=== PATIENT | male | born 2000 | race Caucasian/White ===

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

== ENCOUNTER 2020-01-07 22:15 | Emergency (ER) | payer BC, SELFPAY ==
[~2020-01-07] VITALS: Ht 170.2 cm; Wt 54.5 kg
[2020-01-07] MEDS ORDERED: OLANZapine INTRAMUSCULAR 10MG VIAL IM ONE (23:00)
[2020-01-07 23:05] LABS: HEMATOCRIT 48.3 % (42.0-52.0); HEMOGLOBIN 16.8 g/dl (13.5-17.5); MEAN CORPUSCULAR HEMOGLOBIN 32.8 pg (27.0-33.0); MEAN CORPUSCULAR HGB CONC 34.8 g/dl (32.0-36.5); MEAN CORPUSCULAR VOLUME 94.3 fl (80.0-96.0); PLATELET COUNT, AUTOMATED 274 10^3/uL (150-450); RED BLOOD COUNT 5.12 10^6/uL (4.30-6.10); WHITE BLOOD COUNT 6.5 10^3/uL (4.0-10.0)
[2020-01-07 23:35] LABS: AMPHETAMINES LEVEL URINE NEGATIVE (NEGATIVE); BARBITURATES URINE NEGATIVE (NEGATIVE); BENZODIAZEPINES URINE NEGATIVE (NEGATIVE); CANNABINOIDS URINE NEGATIVE (NEGATIVE); COCAINE METABOLITE URINE NEGATIVE (NEGATIVE); METHADONE URINE NEGATIVE (NEGATIVE); OPIATES URINE NEGATIVE (NEGATIVE); PHENCYCLIDINE URINE NEGATIVE (NEGATIVE)
[2020-01-07 23:46] LABS: ACETAMINOPHEN LEVEL < 2.0 UG/ML (10.0-30.0); ALBUMIN 4.4 GM/DL (3.2-5.2); ALT/SGPT 19 U/L (12-78); BILIRUBIN,DIRECT 0.1 MG/DL (0.0-0.2); BILIRUBIN,TOTAL 0.4 MG/DL (0.2-1.0); BLOOD UREA NITROGEN 8 MG/DL (7-18); CALCIUM LEVEL 8.9 MG/DL (8.5-10.1); CARBON DIOXIDE LEVEL 28 MEQ/L (21-32); CHLORIDE LEVEL 108 MEQ/L (98-107); CREATININE FOR GFR 0.96 MG/DL (0.70-1.30); ETHYL ALCOHOL (ETHANOL) 0.208 % (0.000-0.010); GLUCOSE, FASTING 86 MG/DL (70-100); POTASSIUM SERUM 3.9 MEQ/L (3.5-5.1); SALICYLATE LEVEL 1.7 MG/DL (5.0-30.0); SODIUM LEVEL 141 MEQ/L (136-145); THYROID STIMULATING HORMONE 0.958 uIU/ML (0.463-3.98); TOTAL PROTEIN 7.8 GM/DL (6.4-8.2)
[2020-01-08 09:26] VITALS: BP 125/72
== END 2020-01-08 10:26 | disposition home or self-care (01) ==
LOC: M ED 22:15
DX: F10.129 Alcohol abuse with intoxication, unspecified (principal); F17.200 Nicotine dependence, unspecified, uncomplicated
CPT/HCPCS: 36415; 80048; 80076; 80307; 84443; 85027; 96372; 99285; G0480

== ENCOUNTER 2020-04-13 03:52 | Inpatient (IN) | payer BC, MEDICAID ==
[~2020-04-13] VITALS: Ht 170.2 cm; Wt 52.1 kg
[2020-04-13] MEDS ORDERED: diphenhydrAMINE 50MG/ML VIAL (J1200) As Ordered ONE (03:55)
[2020-04-13] MEDS ORDERED: HALOPERIDOL 5MG/ML VIAL (J1630 PER 1) As Ordered ONE (03:55)
[2020-04-13] MEDS ORDERED: LORazepam 2 MG/ML VIAL As Ordered ONE (03:58)
[2020-04-13] MEDS ORDERED: HALOPERIDOL 5MG/ML VIAL (J1630 PER 1) IM ONE (04:00)
[2020-04-13] MEDS ORDERED: diphenhydrAMINE 50MG/ML VIAL (J1200) IM ONE (04:00)
[2020-04-13] MEDS ORDERED: LORazepam 2 MG/ML VIAL IM ONE (04:00)
[2020-04-13] MEDS ORDERED: LORazepam 2 MG/ML VIAL IV STA (04:15)
[2020-04-13] MEDS ORDERED: NS 1,000 ML IV ONE (04:15)
[2020-04-13 04:16] LABS: HEMATOCRIT 49.5 % (42.0-52.0); HEMOGLOBIN 16.9 g/dl (13.5-17.5); MEAN CORPUSCULAR HEMOGLOBIN 32.7 pg (27.0-33.0); MEAN CORPUSCULAR HGB CONC 34.1 g/dl (32.0-36.5); MEAN CORPUSCULAR VOLUME 95.7 fl (80.0-96.0); PLATELET COUNT, AUTOMATED 310 10^3/uL (150-450); RED BLOOD COUNT 5.17 10^6/uL (4.30-6.10); WHITE BLOOD COUNT 5.9 10^3/uL (4.0-10.0)
[2020-04-13 05:03] LABS: AMPHETAMINES LEVEL URINE NEGATIVE (NEGATIVE); BARBITURATES URINE NEGATIVE (NEGATIVE); BENZODIAZEPINES URINE NEGATIVE (NEGATIVE); CANNABINOIDS URINE POSITIVE (NEGATIVE); COCAINE METABOLITE URINE NEGATIVE (NEGATIVE); METHADONE URINE NEGATIVE (NEGATIVE); OPIATES URINE NEGATIVE (NEGATIVE); PHENCYCLIDINE URINE NEGATIVE (NEGATIVE)
[2020-04-13 05:17] LABS: ACETAMINOPHEN LEVEL < 2.0 UG/ML (10.0-30.0); ALBUMIN 4.5 GM/DL (3.2-5.2); ALT/SGPT 19 U/L (12-78); BILIRUBIN,DIRECT 0.1 MG/DL (0.0-0.2); BILIRUBIN,TOTAL 0.5 MG/DL (0.2-1.0); BLOOD UREA NITROGEN 6 MG/DL (7-18); CALCIUM LEVEL 8.5 MG/DL (8.5-10.1); CARBON DIOXIDE LEVEL 24 MEQ/L (21-32); CHLORIDE LEVEL 107 MEQ/L (98-107); CPK CREATINE PHOSPHOKINASE 146 U/L (39-308); CREATININE FOR GFR 0.93 MG/DL (0.70-1.30); ETHYL ALCOHOL (ETHANOL) 0.193 % (0.000-0.010); GLUCOSE, FASTING 106 MG/DL (70-100); POTASSIUM SERUM 3.9 MEQ/L (3.5-5.1); SALICYLATE LEVEL < 1.7 MG/DL (5.0-30.0); SODIUM LEVEL 142 MEQ/L (136-145); TOTAL PROTEIN 7.8 GM/DL (6.4-8.2)
[2020-04-13 18:52] LABS: RSV AMPLIFICATION NEGATIVE (NEGATIVE)
[2020-04-13] MEDS ORDERED: MOM 30ML SUSPENSION UDC PO PRN (19:00)
[2020-04-13] MEDS ORDERED: MAALOX 30 ML SUSP *UDC PO PRN (19:00)
[2020-04-13] MEDS ORDERED: ACETAMINOPHEN TAB 650MG DOSE (2X325MG) PO PRN (19:00)
[2020-04-13] MEDS ORDERED: cloNIDine 0.1 MG TAB PO PRN (19:00)
[2020-04-13] MEDS ORDERED: OLANZapine ORAL DISINTEGRATING TAB 5MG PO PRN (19:00)
[2020-04-14] MEDS: SERTRALINE HCL 25 MG TABLET PO SCH (09:50)
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
[2020-04-14] MEDS: DIVALPROEX 250 MG TAB PO SCH (20:29)
[2020-04-15 05:33] VITALS: BP 106/60
[2020-04-15] MEDS: SERTRALINE HCL 25 MG TABLET PO SCH (09:05)
[2020-04-15] MEDS: DIVALPROEX 250 MG TAB PO SCH ×2 (09:06→21:36)
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
[2020-04-15 17:30] VITALS: BP 110/68
[2020-04-15] MEDS: traZODone 50 MG TAB PO PRN (21:36)
[2020-04-16 06:04] VITALS: BP 138/76
[2020-04-16] MEDS: DIVALPROEX 250 MG TAB PO SCH ×2 (09:23→21:03)
[2020-04-16] MEDS: SERTRALINE HCL 25 MG TABLET PO SCH (09:23)
[2020-04-16 17:47] VITALS: BP 110/78
[2020-04-17 06:04] VITALS: BP 133/83
[2020-04-17] MEDS: SERTRALINE HCL 25 MG TABLET PO SCH (09:11)
[2020-04-17] MEDS: DIVALPROEX 250 MG TAB PO SCH ×2 (09:11→20:21)
[2020-04-17 15:33] VITALS: BP 133/80
--- NOTE | 2020-04-17 15:39 | MHIPNPDOC ---
[facility] Progress Note Progress Note DATE OF SERVICE: 04/16/2020 CHIEF COMPLAINT: "I had an argument with my mother" HISTORY: This is a 19-year-old male who was brought to the emergency room by the police. Patient was invited to his meeting, and he accepted. We met. Chart was reviewed. Patient denies auditory and visual hallucination. He denies suicidal and homicidal ideations. Patient reports that he has been on medications since he has been admitted and feels much better. He indicated to other worker that his mother would take him back and this has been verified with the coworker. OBJECTIVE: VITAL SIGNS: See below. NEW TEST RESULTS: See below. CURRENT MEDICATIONS: See below. MENTAL STATUS EXAMINATION: Patient is a 19-year old male who looks his stated age. Speech: Is clear , not pressured with normal tone and volume. Patient makes good eye contact. Motor activity: No Psychomotor agitation. No psychomotor retardation. Thought processes : Linear, logical and circumstantial, and perseverative about certain topics. Thought content:appropriate . Perceptions: Denies auditory and visual hallucinations. No persecutory delusion. Judgment: Is fair Insight: Is fair. Immediate recall, Recent and remote memory: Are grossly intact. Attention span is good and concentration: Is normal. Fund of knowledge: Normal for educational attainment. Mood: Is euthymic. Affect: Appropriate and mood congruent. Assessment and plan: Assess 19-year-old, male admitted with signs and symptoms consistent with mood disorder NOS, without psychosis. DIAGNOSES: 1. Mood disorder, not otherwise specified, in complete remission. 2. Personality disorder NOS. 3. None. TREATMENT PLAN: Continue medications as followed: Divalproex Sodium 250 mg by mouth twice daily. Olanzapine 5 mg by mouth twice daily. Trazodone 100 mg by mouth at bedtime. Increase sertraline to 50 mg by mouth daily. TIME SPENT: 30 minutes. Vital Signs Vital Signs Date Time Temp Pulse Resp B/P (MAP) Pulse Ox O2 Delivery O2 Flow Rate FiO2 04/17/20 15:33 98.6 53 14 133/80 (97) 100 04/17/20 06:04 Room Air Current Medications Current Medications Medications (Trade) Dose Ordered Sig/Erinn Route PRN Reason Start Time Stop Time Status Last Admin Dose Admin Acetaminophen (Tylenol Tab) 650 mg Q6HP PRN PO HEADACHE or DISCOMFORT 04/13/20 19:00 04/16/20 19:30 Al Hydrox/Mg Hydrox/Simethicone (Mylanta) 30 ml Q4HP PRN PO HEARTBURN/INDIGESTION 04/13/20 19:00 Clonidine HCl (Catapres) 0.1 mg TIDP PRN PO ANXIETY 04/13/20 19:00 Divalproex Sodium (Depakote) 250 mg BID PO 04/14/20 21:00 04/17/20 09:11 Home Med (Med Rec Complete!) ASDIRECTED XX 04/13/20 18:15 04/13/20 18:08 DC Lorazepam (Ativan) 2 mg STAT STAT IV 04/13/20 04:15 04/13/20 04:16 DC 04/13/20 04:20 Magnesium Hydroxide (Milk Of Magnesia) 30 ml DAILYPRN PRN PO CONSTIPATION 04/13/20 19:00 Olanzapine (ZyPREXA ZYDIS) 5 mg Q4HP PRN PO AGITATION 04/13/20 19:00 Sertraline HCl (Zoloft) 25 mg DAILY PO 04/14/20 09:00 04/17/20 09:11 Trazodone HCl (Desyrel) 50 mg QHSP PRN PO INSOMNIA 04/13/20 19:00 04/15/20 21:36 Allergies Coded Allergies: No Known Allergies (Unverified , 03/07/18) FLORIAN ROSADO MD Apr 17, 2020 15:39
[2020-04-17] MEDS: traZODone 50 MG TAB PO PRN (20:21)
[2020-04-18 06:29] VITALS: BP 123/74
[2020-04-18] MEDS: SERTRALINE HCL 25 MG TABLET PO SCH (08:47)
[2020-04-18] MEDS: DIVALPROEX 250 MG TAB PO SCH ×2 (08:47→20:05)
[2020-04-18 16:49] VITALS: BP 133/67
--- NOTE | 2020-04-18 18:15 | MHIPNPDOC ---
[facility] Progress Note Progress Note Vital Signs Label Value Date Time Patient Temperature 99.2 degrees F 04/18/20 1649 Pulse 66 04/18/20 1649 Blood Pressure Assessment 133/67 (89) 04/18/20 1649 Respiratory Rate 16 bpm 04/18/20 1649 Patient Temperature 98.6 degrees F 04/18/20 0629 Temperature Source Temporal 04/18/20 0629 Respiratory Rate 16 bpm 04/18/20 0629 Pulse 86 04/18/20 0629 Blood Pressure Assessment 123/74 (90) 04/18/20 0629 Bedside Pulse Oximetry 98 % 04/18/20 0629 Item Value Date Time Oxygen Delivery Method Room Air 04/18/20 0629 Sodium Level 142 MEQ/L 04/13/20 0408 Chloride Level 107 MEQ/L 04/13/20 0408 Potassium Level 3.9 MEQ/L 04/13/20 0408 Carbon Dioxide Level 24 MEQ/L 04/13/20 0408 Anion Gap 11 MEQ/L 04/13/20 0408 Blood Urea Nitrogen 6 MG/DL L 04/13/20 0408 Creatinine 0.93 MG/DL 04/13/20 0408 Fasting Glucose 106 MG/DL H 04/13/20 0408 Calcium Level 8.5 MG/DL 04/13/20 0408 Total Bilirubin 0.5 MG/DL 04/13/20 0408 Direct Bilirubin 0.1 MG/DL 04/13/20 0408 Aspartate Amino Transf (AST/SGOT) 19 U/L 04/13/20 0408 Alanine Aminotransferase (ALT/SGPT) 19 U/L 04/13/20 0408 Alkaline Phosphatase 113 U/L 04/13/20 0408 Total Creatine Kinase 146 U/L 04/13/20 0408 Total Protein 7.8 GM/DL 04/13/20 0408 Albumin 4.5 GM/DL 04/13/20 0408 Albumin/Globulin Ratio 1.4 04/13/20 0408 Thyroid Stimulating Hormone (TSH) 1.600 uIU/ML 04/13/20 0408 Ethyl Alcohol Level 0.193 % H 04/13/20 0408 Urine Cannabinoids Screen POSITIVE H 04/13/20 0429 Acetaminophen Level < 2.0 UG/ML L 04/13/20 0408 Salicylates Level < 1.7 MG/DL L 04/13/20 0408 Urine Opiates Screen NEGATIVE 04/13/20428 Urine Methadone Screen NEGATIVE 04/13/20428 Urine Barbiturates Screen NEGATIVE 04/13/20428 Urine Phencyclidine Screen NEGATIVE 04/13/20428 Urine Amphetamines Screen NEGATIVE 04/13/20428 Urine Benzodiazepines Screen NEGATIVE 04/13/20428 Urine Cocaine Metabolite Screen NEGATIVE 04/13/20428 White Blood Count 5.9 10^3/uL 04/13/20 0408 Red Blood Count 5.17 10^6/uL 04/13/20 0408 Hematocrit 49.5 % 04/13/20 0408 Hemoglobin 16.9 g/dl 04/13/20 0408 Mean Corpuscular Volume 95.7 fl 04/13/20 0408 Mean Corpuscular Hemoglobin 32.7 pg 04/13/208 Mean Corpuscular Hemoglobin Concent 34.1 g/dl 04/13/20 0408 Red Cell Distribution Width 12.0 % 04/13/20 0408 Platelet Count 310 10^3/uL 04/13/20 0408 Nucleated Red Blood Cells % (auto) 0.0 % 04/13/20 0408 DATE OF SERVICE: 04/18/20 CHIEF COMPLAINT: "I think I am ready to be discharged" Subjective HISTORY: This is a 19-year-old male who was admitted because of threatening behavior, argumentative with his mother.. The police was called and patient admitted that he wanted to to the police. Patient was seen today. Chart was reviewed. Patient does not have any self harming or suicidal behaviors. He denied homicidal thoughts during addition to review. He denies suicidal and homicidal ideation, intent or plan. Patient denies auditory and visual hallucination. Patient reports that he has been on the following medications: OBJECTIVE: VITAL SIGNS: See below. NEW TEST RESULTS: See below. CURRENT MEDICATIONS: See below. MENTAL STATUS EXAMINATION: Patient is a 19-year old male, who looks stated age. Speech: Is clear with normal tone and volume. Patient made good eye contact. Motor activity: Normal. Psychomotor activity. No psychomotor retardation. Thought processes : Linear, logical and tangential. Thought content: Inappropriate . Perceptions: Denies auditory and visual hallucination. Denies persecutory delusion. Judgment: Is fair Insight: Fair Orientation: Oriented to time, place, person and situation. Immediate recall, Recent and remote memory: Grossly intact Attention span is good and concentration: Is normal Fund of knowledge: Average by academic attainment. Mood: Is reported as good Affect: mood, congruent DIAGNOSES: 1. Mood disorder NOS. 2. Personality disorder NOS. 3. Cannabis and alcohol use disorder. MANAGEMENT PLAN: Continue medications as prescribed. Patient may return to his mother on discharge. TIME SPENT: 35 minutes. . Vital Signs Vital Signs Date Time Temp Pulse Resp B/P (MAP) Pulse Ox O2 Delivery O2 Flow Rate FiO2 04/18/20 06:29 98.6 86 16 123/74 (90) 98 Room Air Current Medications Current Medications Medications (Trade) Dose Ordered Sig/Erinn Route PRN Reason Start Time Stop Time Status Last Admin Dose Admin Acetaminophen (Tylenol Tab) 650 mg Q6HP PRN PO HEADACHE or DISCOMFORT 04/13/20 19:00 04/16/20 19:30 Al Hydrox/Mg Hydrox/Simethicone (Mylanta) 30 ml Q4HP PRN PO HEARTBURN/INDIGESTION 04/13/20 19:00 Clonidine HCl (Catapres) 0.1 mg TIDP PRN PO ANXIETY 04/13/20 19:00 Divalproex Sodium (Depakote) 250 mg BID PO 04/14/20 21:00 04/18/20 08:47 Home Med (Med Rec Complete!) ASDIRECTED XX 04/13/20 18:15 04/13/20 18:08 DC Lorazepam (Ativan) 2 mg STAT STAT IV 04/13/20 04:15 04/13/20 04:16 DC 04/13/20 04:20 Magnesium Hydroxide (Milk Of Magnesia) 30 ml DAILYPRN PRN PO CONSTIPATION 04/13/20 19:00 Olanzapine (ZyPREXA ZYDIS) 5 mg Q4HP PRN PO AGITATION 04/13/20 19:00 Sertraline HCl (Zoloft) 25 mg DAILY PO 04/14/20 09:00 04/18/20 08:47 Trazodone HCl (Desyrel) 50 mg QHSP PRN PO INSOMNIA 04/13/20 19:00 04/17/20 20:21 Allergies Coded Allergies: No Known Allergies (Unverified , 03/07/18) FLORIAN ROSADO MD Apr 18, 2020 15:27
[2020-04-18] MEDS: traZODone 50 MG TAB PO PRN (20:05)
[2020-04-19] MEDS: SERTRALINE HCL 25 MG TABLET PO SCH (09:14)
[2020-04-19] MEDS: DIVALPROEX 250 MG TAB PO SCH (09:14)
[2020-04-19] MEDS ORDERED: CLONI1TA PO (13:58)
[2020-04-19] MEDS ORDERED: SERT25TA21 PO (13:58)
[2020-04-19] MEDS ORDERED: DEPA250T32 PO (13:58)
[2020-04-19] MEDS ORDERED: TRAZ-252 PO (13:58)
--- NOTE | 2020-04-19 14:11 | MHDSPDOC ---
[facility] Discharge Summary Discharge Summary DATE OF ADMISSION: Apr 13, 2020 at 18:55 DATE OF DISCHARGE: 04/19/2020 DISCHARGE DIAGNOSES: 1. Depressive disorder NOS 2. Cannabis abuse and intoxication induced Mood disorder. REASON FOR ADMISSION: 19-year-old male who was brought to the emergency room by the police. Patient was argumentative, verbally threatening and aggressive toward his mother. His motor called the police and at that moment he stated he wanted to kill himself. CONSULTANTS INVOLVED: Drs. Swanson and Annie. TREATMENT AND PROGRESS ON THE UNIT : Patient denies auditory and visual hallucination. He denies suicidal and homicidal ideations. Patient reports that he has been on medications since he has been admitted and feels much better. He indicated to precision printing worker that his mother would take him back and this has been verified with the precision printing worker. HOSPITAL COURSE: While the patient was in the hospital, he has shown good behavior, compliance with medications. He has been participating in milieu therapy and other group activities. DISCHARGE ASSESSMENT: Patient does not pose as a danger to himself and others at the present time. Patient denies auditory and visual hallucination. He denies suicidal and homicidal ideation. MENTAL STATUS EXAMINATION ON DISCHARGE. Patient is a 19-year old male who looks his stated age. He is casually dressed with hospital attire with good hygiene. Speech: Is clear, not pressured with normal tone and volume. Patient makes good eye contact. Motor activity: No Psychomotor agitation. No psychomotor retardation. Thought processes : Linear, logical and circumstantial. Thought content: Appropriate . Perceptions: Denies auditory and visual hallucinations. Denied persecutory delusions. Judgment: Isgood. Insight: Fair. Orientation: Oriented to time, place, person and situation. Immediate recall, Recent and remote memory: are grossly intact. Attention span is good and concentration: is normal. Fund of knowledge: Average by educational attainment. Mood: Is said to be "okay.". Affect: Appropriate and is mood congruent. Assessment and Plan: Assess 26-year-old Male with Signs and Symptoms of depressive disorder, consistent with in partial remission. DIAGNOSES: 1. Depressive disorder NOS. 2. 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 MANAGEMENT PLAN: Discharge patient to family members. Patient at the present time does not represent a danger to self or orders and therefore couldn't be treated in the community. TIME SPENT:65 minutes. MEDICATIONS ON DISCHARGE: see list. PLAN/FOLLOWUP ARRANGEMENTS: . The amount of time spent in the coordination of care for this patient was approximately minutes. [id number] Vital Signs Label Value Date Time Patient Temperature 99.2 degrees F 04/18/20 1649 Pulse 66 04/18/20 1649 Blood Pressure Assessment 133/67 (89) 04/18/20 1649 Respiratory Rate 16 bpm 04/18/20 1649 Item Value Date Time White Blood Count 5.9 10^3/uL 04/13/20 0408 Red Blood Count 5.17 10^6/uL 04/13/20 0408 Hemoglobin 16.9 g/dl 04/13/20 0408 Hematocrit 49.5 % 04/13/20 0408 Mean Corpuscular Volume 95.7 fl 04/13/20 0408 Mean Corpuscular Hemoglobin 32.7 pg 04/13/20 0408 Mean Corpuscular Hemoglobin Concent 34.1 g/dl 04/13/20 0408 Red Cell Distribution Width 12.0 % 04/13/20 0408 Platelet Count 310 10^3/uL 04/13/20 0408 Nucleated Red Blood Cells % (auto) 0.0 % 04/13/20 0408 Urine Opiates Screen NEGATIVE 04/13/20 0429 Urine Cannabinoids Screen POSITIVE H 04/13/20 0429 Ethyl Alcohol Level 0.193 % H 04/13/20 0408 Acetaminophen Level < 2.0 UG/ML L 04/13/20 0408 Coronavirus (COVID-19)(PCR) NEGATIVE 04/13/20 1805 Influenza Type A (RT-PCR) NEGATIVE 04/13/20 1805 Influenza Type B (RT-PCR) NEGATIVE 04/13/20 1805 Respiratory Syncytial Virus (PCR) NEGATIVE 04/13/20 1805 Sodium Level 142 MEQ/L 04/13/20 0408 Potassium Level 3.9 MEQ/L 04/13/20 0408 Chloride Level 107 MEQ/L 04/13/20 0408 Carbon Dioxide Level 24 MEQ/L 04/13/20 0408 Anion Gap 11 MEQ/L 04/13/20 0408 Blood Urea Nitrogen 6 MG/DL L 04/13/20 0408 Creatinine 0.93 MG/DL 04/13/20 0408 Fasting Glucose 106 MG/DL H 04/13/20 0408 Calcium Level 8.5 MG/DL 04/13/20 0408 Total Bilirubin 0.5 MG/DL 04/13/20 0408 Direct Bilirubin 0.1 MG/DL 04/13/20 0408 Aspartate Amino Transf (AST/SGOT) 19 U/L 04/13/20 0408 Alanine Aminotransferase (ALT/SGPT) 19 U/L 04/13/20 0408 Alkaline Phosphatase 113 U/L 04/13/20 0408 Total Creatine Kinase 146 U/L 04/13/20 0408 Total Protein 7.8 GM/DL 04/13/20 0408 Albumin 4.5 GM/DL 04/13/20 0408 Albumin/Globulin Ratio 1.4 04/13/20 0408 Thyroid Stimulating Hormone (TSH) 1.600 uIU/ML 04/13/20 0408 Vital Signs/I&Os Vital Signs Date Time Temp Pulse Resp B/P (MAP) Pulse Ox O2 Delivery O2 Flow Rate FiO2 04/18/20 16:49 99.2 66 16 133/67 (89) 04/18/20 06:29 98 Room Air Medications Scheduled Divalproex Sodium (Depakote) 250 Mg Tablet.dr, 250 MG PO BID for Mood, #14 Sertraline HCl (Sertraline HCl) 25 Mg Tablet, 25 MG PO DAILY for Depression, #7 Scheduled PRN Clonidine Hcl (Clonidine HCl) 0.1 Mg Tablet, 0.1 MG PO BIDP PRN for ANXIETY, #14 Trazodone HCl (Trazodone HCl) 50 Mg Tablet, 50 MG PO QHSP PRN for INSOMNIA, #7 Allergies Coded Allergies: No Known Allergies (Unverified , 03/07/18) FLORIAN ROSADO MD Apr 19, 2020 14:11
--- NOTE | 2020-04-19 14:27 | MHDSPDOC ---
[facility] Discharge Summary Discharge Summary DATE OF ADMISSION: Apr 13, 2020 at 18:55 DATE OF DISCHARGE: DISCHARGE DIAGNOSES: 1. . 2. . REASON FOR ADMISSION: 19-year-old male who was brought to the emergency room by the police. Patient was invited to his meeting, and he accepted. We met. Chart was reviewed. Patient denies auditory and visual hallucination. He denies suicidal and homicidal ideations. Patient reports that he has been on medications since he has been admitted and feels much better. He indicated to clothing worker that his mother would take him back and this has been verified with the clothing worker. CONSULTANTS INVOLVED: Drs. Valencia and Kiki. TREATMENT AND PROGRESS ON THE UNIT : HOSPITAL COURSE: DISCHARGE ASSESSMENT: MENTAL STATUS EXAMINATION ON DISCHARGE: Patient is a -year old male, who is . Speech is . Language skills are . Thought processes including: . Thought content: . Abstract reasoning, and computation: . Description of associations: . Description of abnormal or psychotic thoughts: . Judgment: . Insight: . Orientation to . Recent and remote memory: . Attention span and concentration: . Language: . Fund of knowledge: . Mood: . Affect: . MEDICATIONS ON DISCHARGE: - for . - for . - for . PLAN/FOLLOWUP ARRANGEMENTS: . The amount of time spent in the coordination of care for this patient was approximately minutes. Vital Signs/I&Os Vital Signs Date Time Temp Pulse Resp B/P (MAP) Pulse Ox O2 Delivery O2 Flow Rate FiO2 04/18/20 16:49 99.2 66 16 133/67 (89) 04/18/20 06:29 98 Room Air Medications Scheduled Divalproex Sodium (Depakote) 250 Mg Tablet.dr, 250 MG PO BID for Mood, #14 Sertraline HCl (Sertraline HCl) 25 Mg Tablet, 25 MG PO DAILY for Depression, #7 Scheduled PRN Clonidine Hcl (Clonidine HCl) 0.1 Mg Tablet, 0.1 MG PO BIDP PRN for ANXIETY, #14 Trazodone HCl (Trazodone HCl) 50 Mg Tablet, 50 MG PO QHSP PRN for INSOMNIA, #7 Allergies Coded Allergies: No Known Allergies (Unverified , 03/07/18) FLORIAN VALENCIA MD Apr 19, 2020 14:27
--- NOTE | 2020-04-19 14:29 | MHDSPDOC ---
[facility] Discharge Summary Discharge Summary DATE OF ADMISSION: Apr 13, 2020 at 18:55 DATE OF DISCHARGE: DISCHARGE DIAGNOSES: 1. . 2. . REASON FOR ADMISSION: CONSULTANTS INVOLVED: TREATMENT AND PROGRESS ON THE UNIT : . HOSPITAL COURSE: DISCHARGE ASSESSMENT: MENTAL STATUS EXAMINATION ON DISCHARGE: Patient is a -year old male, who is . Speech is . Language skills are . Thought processes including: . Thought content: . Abstract reasoning, and computation: . Description of associations: . Description of abnormal or psychotic thoughts: . Judgment: . Insight: . Orientation to . Recent and remote memory: . Attention span and concentration: . Language: . Fund of knowledge: . Mood: . Affect: . MEDICATIONS ON DISCHARGE: - for . - for . - for . PLAN/FOLLOWUP ARRANGEMENTS: . The amount of time spent in the coordination of care for this patient was approximately minutes. Vital Signs/I&Os Vital Signs Date Time Temp Pulse Resp B/P (MAP) Pulse Ox O2 Delivery O2 Flow Rate FiO2 04/18/20 16:49 99.2 66 16 133/67 (89) 04/18/20 06:29 98 Room Air Medications Scheduled Divalproex Sodium (Depakote) 250 Mg Tablet.dr, 250 MG PO BID for Mood, #14 Sertraline HCl (Sertraline HCl) 25 Mg Tablet, 25 MG PO DAILY for Depression, #7 Scheduled PRN Clonidine Hcl (Clonidine HCl) 0.1 Mg Tablet, 0.1 MG PO BIDP PRN for ANXIETY, #14 Trazodone HCl (Trazodone HCl) 50 Mg Tablet, 50 MG PO QHSP PRN for INSOMNIA, #7 Allergies Coded Allergies: No Known Allergies (Unverified , 03/07/18) FLORIAN ROSADO MD Apr 19, 2020 14:29
== END 2020-04-19 15:07 | disposition home or self-care (01) | DRG 754 ==
LOC: M ED 03:52 → M ED INP 18:55 → M PSY 20:10
PROVIDERS: ADMIT Psychiatry & Neurology Psychiatry; ATTEND Pediatrics
DX: F32.9 Major depressive disorder, single episode, unspecified (principal); F12.129 Cannabis abuse with intoxication, unspecified; F39 Unspecified mood [affective] disorder; F10.10 Alcohol abuse, uncomplicated; F17.200 Nicotine dependence, unspecified, uncomplicated; F41.1 Generalized anxiety disorder; Z81.8 Family history of other mental and behavioral disorders; F12.159 Cannabis abuse with psychotic disorder, unspecified

== ENCOUNTER 2024-12-31 12:49 | Emergency (ER) | payer MEDICAID ==
[~2024-12-31] VITALS: Ht 170.2 cm; Wt 54.1 kg
[~2024-12-31 12:49] MED LIST: ABIL1TAB12 PO; ABIL30TA4 PO; ARIP30TA38 PO; BUSP10TA PO; BUSP30TA PO; CLONI1TA PO; DIVA-65 PO; HYDR-3363 PO; HYDR-3364 PO; HYDR50TA70 PO; PARO20TA3 PO; PARO20TA4 PO; PARO5TAB PO; SERT25TA21 PO; TRAZ-186 PO; TRAZ-252 PO; VITA200016 PO; VITA500T9 PO; med rec comment
[2024-12-31 13:49] LABS: PLATELET COUNT, AUTOMATED 249 10^3/uL (150-450)
[2024-12-31 13:57] LABS: AMPHETAMINES LEVEL URINE NEGATIVE (NEGATIVE); BARBITURATES URINE NEGATIVE (NEGATIVE); BENZODIAZEPINES URINE NEGATIVE (NEGATIVE); CANNABINOIDS URINE NEGATIVE (NEGATIVE); COCAINE METABOLITE URINE NEGATIVE (NEGATIVE); METHADONE URINE NEGATIVE (NEGATIVE); OPIATES URINE NEGATIVE (NEGATIVE); PHENCYCLIDINE URINE NEGATIVE (NEGATIVE)
[2024-12-31 14:01] LABS: SALICYLATE LEVEL < 3.0 MG/DL (<30)
[2024-12-31 14:02] LABS: ALT/SGPT 15 U/L (7.0-40); AST/SGOT 18 U/L (<34); CALCIUM LEVEL 9.7 MG/DL (8.5-10.1); CARBON DIOXIDE LEVEL 27 MMOL/L (20-31); CHLORIDE LEVEL 104 MMOL/L (98-107); CREATININE FOR GFR 0.81 MG/DL (0.70-1.30); GLOMERULAR FILTRATION RATE > 90.0 (>60); POTASSIUM SERUM 3.7 MMOL/L (3.5-5.1); SODIUM LEVEL 141 MMOL/L (136-145)
[2024-12-31 14:04] LABS: ETHYL ALCOHOL (ETHANOL) < 0.003 % (0.000-0.010)
[2024-12-31] MEDS: ACETAMINOPHEN 325 MG TAB PO ONE (14:05)
[2024-12-31] MEDS ORDERED: HOME MED LIST COMPLETE! XX SCH (18:40)
[2025-01-01 15:42] LABS: KETONE, URINE AUTO RFX NEGATIVE (NEGATIVE); LEUKOCYTE ESTERASE UR AUTO RFX NEGATIVE (NEGATIVE); MUCUS, URINE RFX LARGE (NEGATIVE); NITRITE, URINE AUTO RFX NEGATIVE (NEGATIVE); RBC, URINE AUTO RFX 2 /HPF (0-3); SQUAM EPITHELIAL CELL UR AURFX 0 /HPF (0-6); WBC, URINE AUTO RFX 1 /HPF (0-3)
[2025-01-01] MEDS: ACETAMINOPHEN 325 MG TAB PO ONE (23:04)
[2025-01-02 15:59] VITALS: BP 113/63; TEMP 97; O2SAT 99
== END 2025-01-02 16:01 | disposition home or self-care (01) ==
LOC: M ED 12:49
DX: F23 Brief psychotic disorder (principal); R00.1 Bradycardia, unspecified; F41.9 Anxiety disorder, unspecified; F32.A Depression, unspecified; F12.10 Cannabis abuse, uncomplicated; F10.10 Alcohol abuse, uncomplicated

== ENCOUNTER 2025-01-07 18:50 | Inpatient (IN) | payer MEDICAID, SELFPAY ==
[~2025-01-07] VITALS: Ht 170.2 cm; Wt 52.0 kg
[2025-01-07 20:09] LABS: PLATELET COUNT, AUTOMATED 252 10^3/uL (150-450)
[2025-01-07 20:32] LABS: AMPHETAMINES LEVEL URINE NEGATIVE (NEGATIVE); BARBITURATES URINE NEGATIVE (NEGATIVE); BENZODIAZEPINES URINE NEGATIVE (NEGATIVE); CANNABINOIDS URINE NEGATIVE (NEGATIVE); COCAINE METABOLITE URINE NEGATIVE (NEGATIVE); METHADONE URINE NEGATIVE (NEGATIVE); OPIATES URINE NEGATIVE (NEGATIVE); PHENCYCLIDINE URINE NEGATIVE (NEGATIVE)
[2025-01-07 20:34] LABS: ETHYL ALCOHOL (ETHANOL) < 0.003 % (0.000-0.010)
[2025-01-07 20:36] LABS: ALT/SGPT 13 U/L (7.0-40); AST/SGOT 14 U/L (<34); CALCIUM LEVEL 9.8 MG/DL (8.5-10.1); CARBON DIOXIDE LEVEL 24 MMOL/L (20-31); CHLORIDE LEVEL 103 MMOL/L (98-107); CREATININE FOR GFR 0.93 MG/DL (0.70-1.30); GLOMERULAR FILTRATION RATE > 90.0 (>60); POTASSIUM SERUM 4.1 MMOL/L (3.5-5.1); SALICYLATE LEVEL < 3.0 MG/DL (<30); SODIUM LEVEL 140 MMOL/L (136-145)
[2025-01-07] MEDS ORDERED: HOME MED LIST COMPLETE! XX SCH (22:10)
[2025-01-07] MEDS ORDERED: ACETAMINOPHEN 325 MG TAB PO PRN (22:55)
[2025-01-07] MEDS ORDERED: traZODone 50 MG TAB PO PRN (22:55)
[2025-01-07] MEDS ORDERED: MAALOX 30 ML SUSP *UDC PO PRN (22:55)
[2025-01-07] MEDS ORDERED: MOM 30 ML SUSPENSION UDC PO PRN (22:55)
[2025-01-08 01:15] VITALS: BP 110/70; TEMP 97.7; O2SAT 98
[2025-01-08 06:28] VITALS: BP 135/79; TEMP 98.2; O2SAT 100
[2025-01-08] MEDS: FLUTICASONE PROPIONATE 0.05% NASAL SPRAY 16 GM NARES SCH (09:00)
[2025-01-08] MEDS: RISPERIDONE 1 MG TAB PO SCH (09:45)
[2025-01-09 06:50] VITALS: BP 102/57; TEMP 96.8; O2SAT 96
[2025-01-09 16:38] VITALS: BP 112/58; TEMP 98.2; O2SAT 99
[2025-01-10 06:45] VITALS: BP 116/56; TEMP 98.4; O2SAT 96
[2025-01-10] MEDS: IBUPROFEN 400 MG TAB PO PRN (07:12)
[2025-01-11] MEDS ORDERED: BUSP10TA PO (10:58)
[2025-01-11] MEDS ORDERED: ABIL1TAB11 PO (10:58)
== END 2025-01-11 11:10 | disposition home or self-care (01) | DRG 775 ==
LOC: M ED 18:50 → M ED INP 22:52 → M PSY 23:45
PROVIDERS: ADMIT Student in an Organized Health Care Education/Training Program; ATTEND Psychiatry & Neurology Psychiatry
DX: F12.151 Cannabis abuse with psychotic disorder with hallucinations (principal); F10.10 Alcohol abuse, uncomplicated; F25.1 Schizoaffective disorder, depressive type; F41.1 Generalized anxiety disorder; F17.210 Nicotine dependence, cigarettes, uncomplicated; Z65.2 Problems related to release from prison; Z91.51 Personal history of suicidal behavior; F60.2 Antisocial personality disorder

== ENCOUNTER 2025-01-13 11:29 | Emergency (ER) | payer MEDICAID, SELFPAY ==
[~2025-01-13] VITALS: Ht 170.2 cm; Wt 53.1 kg
[~2025-01-13 11:29] MED LIST changes: +ABIL1TAB11 PO
[2025-01-13 11:30] VITALS: BP 114/64; TEMP 98.2; O2SAT 99
[2025-01-13] MEDS ORDERED: BUSP30TA (11:38)
[2025-01-13] MEDS ORDERED: ARIP30TA38 (11:38)
[2025-01-13 13:26] LABS: PLATELET COUNT, AUTOMATED 252 10^3/uL (150-450)
[2025-01-13 13:53] LABS: ETHYL ALCOHOL (ETHANOL) < 0.003 % (0.000-0.010)
[2025-01-13 13:54] LABS: ALT/SGPT 15 U/L (7.0-40); AST/SGOT 19 U/L (<34); CALCIUM LEVEL 9.6 MG/DL (8.5-10.1); CARBON DIOXIDE LEVEL 30 MMOL/L (20-31); CHLORIDE LEVEL 104 MMOL/L (98-107); CREATININE FOR GFR 0.81 MG/DL (0.70-1.30); GLOMERULAR FILTRATION RATE > 90.0 (>60); POTASSIUM SERUM 4.8 MMOL/L (3.5-5.1); SALICYLATE LEVEL < 3.0 MG/DL (<30); SODIUM LEVEL 142 MMOL/L (136-145)
[2025-01-13 14:29] LABS: AMPHETAMINES LEVEL URINE NEGATIVE (NEGATIVE); BARBITURATES URINE NEGATIVE (NEGATIVE); BENZODIAZEPINES URINE NEGATIVE (NEGATIVE); CANNABINOIDS URINE NEGATIVE (NEGATIVE); COCAINE METABOLITE URINE NEGATIVE (NEGATIVE); METHADONE URINE NEGATIVE (NEGATIVE); OPIATES URINE NEGATIVE (NEGATIVE); PHENCYCLIDINE URINE NEGATIVE (NEGATIVE)
[2025-01-14] MEDS ORDERED: BUSP10TA PO (14:41)
[2025-01-14] MEDS ORDERED: ABIL1TAB11 PO (14:41)
== END 2025-01-13 16:28 | disposition home or self-care (01) ==
LOC: M ED 11:29
DX: R44.3 Hallucinations, unspecified (principal); F41.9 Anxiety disorder, unspecified; F19.10 Other psychoactive substance abuse, uncomplicated; Z79.899 Other long term (current) drug therapy

== ENCOUNTER 2025-01-13 19:55 | Emergency (ER) | payer SELFPAY ==
[~2025-01-13] VITALS: Ht 170.2 cm; Wt 54.4 kg
[~2025-01-13 19:55] MED LIST changes: +ARIP30TA38; +BUSP30TA
[2025-01-14 08:04] VITALS: BP 116/64; TEMP 96.7; O2SAT 100
[2025-01-14] MEDS: OVERDOSE RESCUE KIT XX SCH (08:10)
[2025-01-14] MEDS ORDERED: BUSP10TA PO (14:41)
[2025-01-14] MEDS ORDERED: ABIL1TAB11 PO (14:41)
[2025-01-14] MEDS ORDERED: HOME MED LIST COMPLETE! XX SCH (14:45)
[2025-01-14] MEDS ORDERED: RISPERIDONE 1 MG TAB PO ONE (15:40)
== END 2025-01-14 08:12 | disposition home or self-care (01) ==
LOC: M ED 19:55
DX: F19.10 Other psychoactive substance abuse, uncomplicated (principal); F25.9 Schizoaffective disorder, unspecified; F41.9 Anxiety disorder, unspecified; F17.210 Nicotine dependence, cigarettes, uncomplicated; Z91.011 Allergy to milk products; Z79.899 Other long term (current) drug therapy

== ENCOUNTER 2025-02-06 16:36 | Inpatient (IN) | payer SELFPAY ==
[~2025-02-06] VITALS: Ht 170.2 cm; Wt 51.7 kg
[2025-02-06] MEDS ORDERED: HOME MED LIST COMPLETE! XX SCH (17:40)
[2025-02-06 18:05] LABS: PLATELET COUNT, AUTOMATED 242 10^3/uL (150-450)
[2025-02-06 18:28] LABS: ETHYL ALCOHOL (ETHANOL) < 0.003 % (0.000-0.010)
[2025-02-06 18:30] LABS: SALICYLATE LEVEL < 3.0 MG/DL (<30)
[2025-02-06 18:33] LABS: ALT/SGPT 11 U/L (7.0-40); AST/SGOT 17 U/L (<34); CALCIUM LEVEL 9.3 MG/DL (8.5-10.1); CARBON DIOXIDE LEVEL 29 MMOL/L (20-31); CHLORIDE LEVEL 104 MMOL/L (98-107); CREATININE FOR GFR 0.67 MG/DL (0.70-1.30); GLOMERULAR FILTRATION RATE > 90.0 (>60); POTASSIUM SERUM 3.9 MMOL/L (3.5-5.1); SODIUM LEVEL 139 MMOL/L (136-145)
[2025-02-06 18:38] LABS: AMPHETAMINES LEVEL URINE NEGATIVE (NEGATIVE); BARBITURATES URINE NEGATIVE (NEGATIVE); BENZODIAZEPINES URINE NEGATIVE (NEGATIVE)
[2025-02-06 18:39] LABS: COCAINE METABOLITE URINE NEGATIVE (NEGATIVE); METHADONE URINE NEGATIVE (NEGATIVE); OPIATES URINE NEGATIVE (NEGATIVE); PHENCYCLIDINE URINE NEGATIVE (NEGATIVE)
[2025-02-06 18:43] LABS: CANNABINOIDS URINE POSITIVE (NEGATIVE)
[2025-02-06] MEDS ORDERED: MAALOX 30 ML SUSP *UDC PO PRN (20:05)
[2025-02-06] MEDS ORDERED: MOM 30 ML SUSPENSION UDC PO PRN (20:05)
[2025-02-06] MEDS ORDERED: HALOPERIDOL 5 MG TAB PO PRN (20:05)
[2025-02-06] MEDS ORDERED: traZODone 50 MG TAB PO PRN (20:05)
[2025-02-06 21:45] VITALS: BP 103/67; TEMP 97.1; O2SAT 99
[2025-02-07] MEDS: IBUPROFEN 400 MG TAB PO PRN (09:02)
[2025-02-07] MEDS: diphenhydrAMINE 50 MG/ML VIAL IM STA (11:18)
[2025-02-07] MEDS: HALOPERIDOL LACTATE 5 MG/ML VIAL IM ONE (11:18)
[2025-02-07 11:30] VITALS: BP 110/84; TEMP 97.5; O2SAT 99
[2025-02-08 06:00] VITALS: BP 117/76; TEMP 97.8; O2SAT 97
[2025-02-08] MEDS: SERTRALINE HCL 25 MG TABLET PO SCH (12:44)
[2025-02-08 15:35] VITALS: BP 119/72; TEMP 97.2; O2SAT 99
[2025-02-08] MEDS: ACETAMINOPHEN 325 MG TAB PO PRN (23:31)
[2025-02-10 14:57] VITALS: BP 131/67; TEMP 97.7; O2SAT 99
[2025-02-11 06:34] VITALS: BP 117/65; TEMP 97.2; O2SAT 100
[2025-02-11 06:37] VITALS: BP 117/65; TEMP 97.2; O2SAT 100
[2025-02-11 16:04] VITALS: BP 135/76; TEMP 98; O2SAT 99
[2025-02-11] MEDS: diphenhydrAMINE 50 MG/ML VIAL IM STA (16:59)
[2025-02-11] MEDS: HALOPERIDOL LACTATE 5 MG/ML VIAL IM STA (16:59)
[2025-02-12 16:06] VITALS: BP 135/80; TEMP 97.3; O2SAT 99
[2025-02-12] MEDS: OLANZapine 5 MG TAB PO SCH (20:53)
[2025-02-13 06:42] VITALS: BP 113/64; TEMP 97.8; O2SAT 100
[2025-02-13] MEDS ORDERED: SERT25TA21 PO (10:08)
[2025-02-13] MEDS ORDERED: BACI50OI TOP (10:08)
== END 2025-02-13 12:52 | disposition home or self-care (01) | DRG 776 ==
LOC: M ED 16:36 → M ED INP 20:05 → M PSY 21:48
PROVIDERS: ADMIT Student in an Organized Health Care Education/Training Program; ATTEND Psychiatry & Neurology Psychiatry
DX: F12.151 Cannabis abuse with psychotic disorder with hallucinations (principal); Z78.1 Physical restraint status; F25.9 Schizoaffective disorder, unspecified; F41.1 Generalized anxiety disorder; F60.2 Antisocial personality disorder; Z91.51 Personal history of suicidal behavior; Z65.2 Problems related to release from prison; Z79.899 Other long term (current) drug therapy; E73.9 Lactose intolerance, unspecified; Z91.52 Personal history of nonsuicidal self-harm

== ENCOUNTER 2025-03-06 08:41 | Inpatient (IN) | payer MEDICAID, SELFPAY ==
[~2025-03-06] VITALS: Ht 170.2 cm; Wt 54.0 kg
[~2025-03-06 08:41] MED LIST changes: +BACI50OI TOP
[2025-03-06 10:46] LABS: AMPHETAMINES LEVEL URINE NEGATIVE (NEGATIVE)
[2025-03-06 10:47] LABS: BARBITURATES URINE NEGATIVE (NEGATIVE); BENZODIAZEPINES URINE NEGATIVE (NEGATIVE); CANNABINOIDS URINE NEGATIVE (NEGATIVE); COCAINE METABOLITE URINE NEGATIVE (NEGATIVE); METHADONE URINE NEGATIVE (NEGATIVE); OPIATES URINE NEGATIVE (NEGATIVE); PHENCYCLIDINE URINE NEGATIVE (NEGATIVE)
[2025-03-06] MEDS: OLANZapine ORAL DISINTEGRATING TAB 5MG PO ONE (10:48)
[2025-03-06] MEDS ORDERED: SERT25TA85 PO (12:02)
[2025-03-06] MEDS ORDERED: HOME MED LIST COMPLETE! XX SCH (12:05)
[2025-03-06] MEDS: OLANZapine INTRAMUSCULAR 10MG VIAL IM ONE (13:35)
[2025-03-06 15:28] LABS: PLATELET COUNT, AUTOMATED 244 10^3/uL (150-450)
[2025-03-06 15:53] LABS: ETHYL ALCOHOL (ETHANOL) < 0.003 % (0.000-0.010)
[2025-03-06 15:55] LABS: ALT/SGPT 17 U/L (7.0-40); AST/SGOT 21 U/L (<34); CALCIUM LEVEL 10.1 MG/DL (8.5-10.1); CARBON DIOXIDE LEVEL 22 MMOL/L (20-31); CHLORIDE LEVEL 102 MMOL/L (98-107); CREATININE FOR GFR 0.79 MG/DL (0.70-1.30); GLOMERULAR FILTRATION RATE > 90.0 (>60); POTASSIUM SERUM 3.4 MMOL/L (3.5-5.1); SALICYLATE LEVEL < 3.0 MG/DL (<30); SODIUM LEVEL 143 MMOL/L (136-145)
[2025-03-06] MEDS ORDERED: MAALOX 30 ML SUSP *UDC PO PRN (16:50)
[2025-03-06] MEDS ORDERED: OLANZapine 5 MG TAB PO PRN (16:50)
[2025-03-06] MEDS ORDERED: HALOPERIDOL 5 MG TAB PO PRN (16:50)
[2025-03-06] MEDS ORDERED: IBUPROFEN 400 MG TAB PO PRN (16:50)
[2025-03-06] MEDS ORDERED: LORazepam 1 MG TAB PO PRN (16:50)
[2025-03-06] MEDS ORDERED: MOM 30 ML SUSPENSION UDC PO PRN (16:50)
[2025-03-06] MEDS ORDERED: traZODone 50 MG TAB PO PRN (16:50)
[2025-03-06] MEDS ORDERED: ACETAMINOPHEN 325 MG TAB PO PRN (16:50)
[2025-03-06 17:52] VITALS: BP 118/77; TEMP 97.2; O2SAT 99
[2025-03-07 06:41] VITALS: BP 103/61; TEMP 97; O2SAT 99
[2025-03-07] MEDS ORDERED: SERTRALINE HCL 25 MG TABLET PO SCH (09:00)
[2025-03-07] MEDS ORDERED: NICOTINE 14 MG/24 HR TRANSDERMAL TD SCH (09:00)
[2025-03-07] MEDS: SERTRALINE HCL 50 MG TAB PO SCH (14:33)
[2025-03-08 17:30] VITALS: BP 110/73; TEMP 98; O2SAT 99
[2025-03-09 06:18] VITALS: BP 118/63; TEMP 97.5; O2SAT 97
[2025-03-10] MEDS ORDERED: SERT50TA29 PO (13:12)
[2025-03-10] MEDS ORDERED: ABIL1TAB11 PO (13:12)
== END 2025-03-10 13:48 | disposition home or self-care (01) | DRG 750 ==
LOC: M ED 08:41 → M ED INP 16:48 → M PSY 17:47
PROVIDERS: ADMIT Internal Medicine; ATTEND Internal Medicine
DX: F25.1 Schizoaffective disorder, depressive type (principal); Z91.148 Patient's other noncompliance with medication regimen for other reason; E73.9 Lactose intolerance, unspecified; Z59.00 Homelessness unspecified; F41.9 Anxiety disorder, unspecified; F43.10 Post-traumatic stress disorder, unspecified; Z65.2 Problems related to release from prison; Z79.899 Other long term (current) drug therapy; Z78.1 Physical restraint status; F90.9 Attention-deficit hyperactivity disorder, unspecified type; F19.159 Other psychoactive substance abuse with psychoactive substance-induced psychotic disorder, unspecified

== ENCOUNTER 2025-03-10 13:56 | Emergency (ER) | payer MEDICAID ==
[~2025-03-10] VITALS: Ht 170.2 cm; Wt 53.5 kg
[~2025-03-10 13:56] MED LIST changes: +SERT25TA85 PO; +SERT50TA29 PO
[2025-03-10 14:00] VITALS: BP 115/69; TEMP 96.9; O2SAT 100
== END 2025-03-10 14:56 | disposition home or self-care (01) ==
LOC: M ED 13:56
DX: F25.9 Schizoaffective disorder, unspecified (principal); F32.A Depression, unspecified; F41.9 Anxiety disorder, unspecified; Z91.0110 Allergy to milk products, unspecified; Z79.899 Other long term (current) drug therapy

== ENCOUNTER 2025-03-10 19:24 | Emergency (ER) | payer MEDICAID ==
[~2025-03-10] VITALS: Ht 170.2 cm; Wt 55.1 kg
[2025-03-11 10:14] VITALS: BP 106/58; TEMP 98.5; O2SAT 99
== END 2025-03-11 11:51 | disposition home or self-care (01) ==
LOC: M ED 19:24
DX: F25.9 Schizoaffective disorder, unspecified (principal); Z91.0110 Allergy to milk products, unspecified; Z79.899 Other long term (current) drug therapy